=== PATIENT | female | born 1985 | race American Indian/Alaskan Native ===

== ENCOUNTER 2017-10-12 20:15 | Emergency (ER) | payer OTHER ==
[2017-10-12] MEDS ORDERED: Morphine 2 mg/ml ISec IVP STA (20:43)
[2017-10-12] MEDS ORDERED: Sodium Chloride 0.9% 1,000 ML IV STA (20:43)
[2017-10-12] MEDS ORDERED: Morphine 4 mg/ml ISec IVP STA (20:45)
--- NOTE | 2017-10-12 20:47 | ED PDOC ---
Arrival/HPI - General Chief Complaint: Abdominal Pain Time Seen by Provider: 10/12/17 20:41 Historian: Patient - History of Present Illness Narrative History of Present Illness (Text): 10/12/17 20:43 pt p/w + 2 days onset of right lower abd pain, worse with movement, at most pain is 8/10, waxing and waning, and does not radiate; pt states she has been having off and on right sided pain for ~ 4+ weeks, but the pain over the last 2 days is much more intense; pt states no fever/chills/sweats, no appetite changes , no n/v, no cp/sob/palpitation, no urinary/bowel changes, no gross bleeding, no fall/trauma/sick contact, no travel; pt states no rashes, no LOC/ lightheadedness pt denied other complaints pt denied vaginal changes/bleeding/discharge pt is here for further eval. PCP: Orin LMP: 4 weeks ago Time/Duration: < week (2 days ago but right lower abd pain started ~ 1 month ago ) Symptom Onset: Sudden Symptom Course: Intermittent, Worsening Quality: Stabbing, Cramping Severity Level: 8, Severe Activities at Onset: Rest Context: Home Past Medical History - Provider Review Nursing Documentation Reviewed: Yes - Travel History Have you recently traveled outside [place] w/in the past 3 mons?: No - Past History Past History: No Previous - Infectious Disease Hx of Infectious Diseases: None - Tetanus Immunization Tetanus Immunization: Unknown - Reproductive Menopause: No Currently : Unknown (LMP: 4 weeks ago) - Psychiatric Hx Substance Use: No Family/Social History - Physician Review Nursing Documentation Reviewed: Yes Family/Social History: No Known Family HX Smoking Status: hookah Hx Alcohol Use: Yes Frequency of alcohol use: Socially Hx Substance Use: No Hx Substance Use Treatment: No Allergies/Home Meds Allergies/Adverse Reactions: Allergies No Known Allergies Allergy (Verified 10/12/17 20:27) Review of Systems - Review of Systems Constitutional: Normal Eyes: Normal ENT: Normal Respiratory: Normal Cardiovascular: Normal Gastrointestinal: Abdominal Pain, Stool Changes, Constipation. absent: Nausea, Vomiting, Appetite Changes Genitourinary Female: Normal. absent: Dysuria, Vaginal Bleeding, Vaginal Discharge Musculoskeletal: Normal Skin: Normal Neurological: Normal Endocrine: Normal Hemo/Lymphatic: Normal Psychiatric: Normal Physical Exam Vital Signs Reviewed: Yes Vital Signs Temp Pulse Resp BP Pulse Ox 10/12/17 22:32 98.3 F 83 18 120/75 100 Temperature: Afebrile Blood Pressure: Normal Pulse: Regular Respiratory Rate: Normal Appearance: Positive for: Well-Appearing, Non-Toxic, Uncomfortable, Other (alert /awake, GCS = 15, oriented x 3, resting in bed, uncomfortable, cooperative, NAD) Pain Distress: None Mental Status: Positive for: Alert and Oriented X 3 - Systems Exam Head: Present: Atraumatic, Normocephalic Pupils: Present: PERRL, Other (no nystagmus, no photophobia, sclera anicteric, visual field intact b/l) Extroacular Muscles: Present: EOMI Conjunctiva: Present: Normal Ears: Present: Normal Mouth: Present: Moist Mucous Membranes, Normal Teeth, Other (uvula/tongue are midline, no exudate/lesions, no drooling/stridor) Pharnyx: Present: Normal Nose (External): Present: Atraumatic Nose (Internal): Present: Normal Inspection. No: No Active Bleeding Neck: Present: Normal Range of Motion, Trachea Midline, Other (intact ROM, no midline tenderness). No: Meningeal Signs, MIDLINE TENDERNESS, Paraspinal Tenderness Respiratory/Chest: Present: Clear to Auscultation, Good Air Exchange, Other ( CTA b/l, no w/r/r). No: Respiratory Distress, Accessory Muscle Use Cardiovascular: Present: Regular Rate and Rhythm, Normal S1, S2. No: Murmurs Abdomen: Present: Tenderness, Normal Bowel Sounds, Other (well nourished/thin female, + right lower abd tenderness, + mcburney's point tenderness, + obturator sign, negative psoas sign, no rebound/guarding/rigidity/masses noted, no garzon's sign) Back: Present: Normal Inspection. No: CVA Tenderness, Midline Tenderness, Paraspinal Tenderness, Pain with Leg Raise Upper Extremity: Present: Normal Inspection, Normal ROM, NORMAL PULSES, Capillary Refill < 2s. No: Deformity Lower Extremity: Present: Normal Inspection, NORMAL PULSES, Normal ROM, Neurovascularly Intact, Capillary Refill < 2 s Neurological: Present: GCS=15, CN II-XII Intact, Speech Normal Skin: Present: Warm, Normal Color, Other (cap refill < 1sec, no ulcerations, no petechiae, no rashes) Psychiatric: Present: Alert, Oriented x 3, Normal Insight, Normal Concentration Medical Decision Making ED Course and Treatment: 10/12/17 20:43 Impression: right abd pain i have consider all the differential diagnosis regarding pt's chief medical complaints/clinical findings, including but are not limited to: right abd pain A/P: r/o appy, possible ovarian pathology - labs - iv - ct - ua - supportive care - observe/reevaluation pt is awaiting her diagnostic results pt felt slight improvement 10/12/17 23:57 pt is made aware of her medical results pt is given a choice for either admission or discharge home, for her medical diagnosis, pt states she felt well enough that she wants to try at home/outpt therapy first pt would like to be released home pt is encouraged fluid hydration pt will f/u as directed pt will be discharged home Re-evaluation Time: 00:01 Reassessment Condition: Improving,but remains with symptoms - Lab Interpretations Lab Results: 10/12/17 20:56 10/12/17 20:56 Lab Results 10/12/17 20:56: Urine Color Light yellow, Urine Appearance Sl cloudy, Urine pH 6.0, Ur Specific [place] 1.015, Urine Protein Trace H, Urine Glucose (UA) Negative, Urine Ketones 15 H, Urine Blood Small H, Urine Nitrate Negative, Urine Bilirubin Negative, Urine Urobilinogen 2.0 H, Ur Leukocyte Esterase Small H, Urine RBC 1 - 3, Urine WBC 10 - 15, Ur Epithelial Cells 1 - 3, Urine Bacteria Few 10/12/17 20:56: pO2 34, VBG pH 7.38, VBG pCO2 46.0, VBG HCO3 27.2, VBG Total CO2 28.6 H, VBG O2 Sat (Calc) 68.9 H, VBG Base Excess 1.5, VBG Potassium 3.6, Sodium 136.0, Chloride 102.0, Glucose 90, Lactate 0.5 L, FiO2 21.0, Venous Blood Potassium 3.6 10/12/17 20:56: Sodium 142, Chloride 102, Potassium 3.6, Carbon Dioxide 25, Anion Gap 20, BUN 15, Creatinine 0.7, Est GFR ( Amer) > 60, Est GFR (Non- Af Amer) > 60, Random Glucose 89, Calcium 9.1, Magnesium 2.0, Total Bilirubin 0.3, AST 28, ALT 17, Alkaline Phosphatase 69, Total Protein 8.5 H, Albumin 4.5, Globulin 4.0, Albumin/Globulin Ratio 1.1, Lipase 257 10/12/17 20:56: PT 13.3 H, INR 1.16 H, APTT 29.4 10/12/17 20:56: WBC 9.7, RBC 3.52, Hgb 11.5 L, Hct 33.8 L, MCV 96.0, MCH 32.7, MCHC 34.0, RDW 13.1, Plt Count 298, MPV 9.5, Gran % 73.3 H, Lymph % (Auto) 17.7 L, [place] % (Auto) 8.5 H, Eos % (Auto) 0.3 L, Baso % (Auto) 0.2, Gran # 7.09 H, Lymph # (Auto) 1.7, [place] # (Auto) 0.8 H, Eos # (Auto) 0.0, Baso # (Auto) 0.02 I have reviewed the lab results: Yes Interpretation: Abnormal lab values (+ UTI) - RAD Interpretation Narrative RAD Interpretations (Text): 10/12/17 23:57 CT Abdomen and Pelvis With Intravenous Contrast Dictated and Authenticated by: Po Correa MD 10/12/2017 10:41 PM Eastern Time ([place] & [place]) IMPRESSION: 1. Findings compatible with RIGHT pyelonephritis and possible ureteritis. 2. Incidental/non-acute findings are described above. [facility] Division of Radiology [address] [address] Tel. no. Patient Name: CARTER XIE Pt. Address: [address] [place] [address]. Rec #: [id number] [place] [address]: Mathew Noyola MD Pt Order Location: ED : 1985 Female Age: 32 Order #: [id number] Reason for exam: R lower abd pain started 4 weeks ago, worse x 2d Ultrasound TRANSVAGINAL Exam Date: 10/12/17 This imaging exam was performed at [facility] EXAM: US Pelvis Complete, Transabdominal US Pelvis, Transvaginal CLINICAL HISTORY: 32 years old, female; Pain; Pelvic pain; Additional info: R lower abd pain started 4 weeks ago, worse x 2d TECHNIQUE: Real-time transabdominal and transvaginal pelvic ultrasound (complete) with image documentation. Transvaginal imaging was used for better evaluation of the endometrium and adnexa. COMPARISON: CT - ABD PELVIS IV CONTRAST ONLY 2017-10-12 22:02 FINDINGS: Uterus/cervix: Uterus measures 10.3 x 4.1 x 5.9 cm in size. No myometrial mass. Endometrium: 1.6 cm in thickness. Right ovary: 3.4 x 2.4 x 3.3 cm in size. Two shadowing hyperechoic foci, larger measuring 1.7 x 1.6 x 1.9 cm. Normal flow. Left ovary: 2.5 x 1.9 x 2.7 cm in size. No mass. Normal flow. Free fluid: Trace free fluid within pelvis. Bladder: Unremarkable as visualized. IMPRESSION: 1. Right ovarian calcifications vs dermoid. Suggest nonemergent MRI. 2. Incidental/non-acute findings are described above. Dictated By: Po Correa MD Dictated Date/Time: 10/12/172352 Signed By: Po Correa MD Date Signed: [id number] Transcribed By: DAVID Transcribe Date/Time : 10/12/172352 [id number] Radiology Orders: 10/12/17 20:41 ABD & PELVIS IV CONTRAST ONLY [CT] Stat 10/12/17 20:47 TRANSVAGINAL [US] Stat Patrol Supervisor: Radiologist - Medication Orders Current Medication Orders: Discontinued Medications Sodium Chloride (Sodium Chloride 0.9%) 1,000 mls @ 999 mls/hr IV .Q1H1M STA Stop: 10/12/17 21:43 Last Admin: 10/12/17 20:54 Dose: 999 mls/hr eMAR Start Stop Document 10/12/17 20:54 CNR (Rec: 10/12/17 20:54 CNR [id number]) Intravenous Solution Start Date 10/12/17 Start Time 20:54 Ceftriaxone Sodium (Rocephin 1 Gram Ivpb) 1 gm in 100 mls @ 200 mls/hr IVPB STAT STA PRN Reason: Protocol Stop: 10/12/17 23:12 Last Admin: 10/12/17 22:56 Dose: 200 mls/hr eMAR Start Stop Document 10/12/17 22:56 CNR (Rec: 10/12/17 22:58 CNR [id number]) Intravenous Solution Start Date 10/12/17 Start Time 22:58 End Date 10/12/17 End time 23:28 Total Infusion Time 30 Ketorolac Tromethamine (Toradol) 30 mg IVP STAT STA Stop: 10/12/17 22:45 Last Admin: 10/12/17 22:58 Dose: 30 mg MAR Pain Assessment Document 10/12/17 22:58 CNR (Rec: 10/12/17 22:58 CNR [id number]) Pain Reassessment Is this a pain reassessment? Yes IVP Administration Document 10/12/17 22:58 CNR (Rec: 10/12/17 22:58 CNR [id number]) Charges for Administration # of IVP Administrations 1 Morphine Sulfate (Morphine) 4 mg IVP STAT STA Stop: 10/12/17 20:46 Last Admin: 10/12/17 20:55 Dose: 4 mg MAR Pain Assessment Document 10/12/17 20:55 CNR (Rec: 10/12/17 20:55 CNR [id number]) Pain Reassessment Is this a pain reassessment? Yes IVP Administration Document 10/12/17 20:55 CNR (Rec: 10/12/17 20:55 CNR [id number]) Charges for Administration # of IVP Administrations 1 Disposition/Present on Arrival - Present on Arrival Any Indicators Present on Arrival: No History of DVT/PE: No History of Uncontrolled Diabetes: No Urinary Catheter: No History of Decub. Ulcer: No History Surgical Site Infection Following: None - Disposition Have Diagnosis and Disposition been Completed?: Yes Diagnosis: Pyelonephritis, UTI (urinary tract infection), Calcification of ovary Disposition: HOME/ ROUTINE Disposition Time: 00:00 Patient Plan: Discharge Patient Problems: Current Active Problems Problem Status Onset Pyelonephritis Acute UTI (urinary tract infection) Acute Calcification of ovary Acute Condition: STABLE Discharge Instructions (ExitCare): Urinary Tract Infections in Adults, Kidney Infection (DC) Print Language: TANZANIAN Additional Instructions: Make sure to see your doctor in 1-2 days DRINK PLENTY OF FLUIDS take your medications as prescribed RETURN TO ED IF worse pain, cant breath, persistent vomiting, high fever >101- 102 for hours, altered behavior, slurr speech, facial changes, focal weakness ( arm/leg or both), unable to urinate, heavy/persistent bleeding, passing out, chest pain, or other medical emergencies Prescriptions: Amoxicillin/Clavulanate [Augmentin 875 MG-125 MG] 1 tab PO BID #20 tab Ibuprofen [Motrin] 400 mg PO QID PRN #30 tab PRN Reason: Pain, Mild (1-3) oxyCODONE/Acetaminophen [Percocet 5/325 mg Tab] 1 tab PO TID PRN #10 tab PRN Reason: Pain, Moderate (4-7) Referrals: Dinah Sr CNM [Primary Care Provider] - Follow up with primary [facility] [Outside] - Follow up with primary [facility] [Outside] - Follow up with [facility] [Outside] - Follow up with primary Forms: [employer] (Slovak), WORK NOTE
[2017-10-12 21:01] LABS: URINE BILIRUBIN NEGATIVE (NEGATIVE); URINE BLOOD SMALL (NEGATIVE); URINE GLUCOSE (UA) NEGATIVE (NEGATIVE); URINE LEUKOCYTE ESTERASE SMALL Leu/uL (NEGATIVE); URINE PROTEIN TRACE mg/dL (<30 mg/dL)
[2017-10-12 21:02] LABS: URINE APPEARANCE SL CLOUDY (CLEAR); URINE COLOR LIGHT YELLOW (YELLOW); VENOUS BLOOD GAS BASE EXCESS 1.5 mmol/L (0.0-2.0); VENOUS BLOOD GAS PO2 34 mm/Hg (30-55); VENOUS BLOOD PH 7.38 (7.32-7.43)
[2017-10-12 21:03] LABS: BASO # 0.02 K/mm3 (0.0-2.0); BASO % 0.2 % (0.0-3.0); EOS % 0.3 % (1.5-5.0); GRAN # 7.09 (1.4-6.5); GRAN % 73.3 % (50.0-68.0); HEMOGLOBIN 11.5 g/dL (12.0-16.0); LYMPH # 1.7 (1.2-3.4); LYMPH % 17.7 % (22.0-35.0); MEAN CORPUSCULAR HEMOGLOBIN 32.7 pg (25.0-35.0); MEAN PLATELET VOLUME 9.5 fl (7.0-11.0); MONO # 0.8 (0.1-0.6); MONO % 8.5 % (1.0-6.0); RBC 3.52 10^6/uL (3.5-6.1); RED CELL DISTRIBUTION WIDTH 13.1 % (11.5-14.5); WHITE BLOOD COUNT 9.7 10^3/ul (4.5-11.0)
[2017-10-12 21:06] LABS: URINE BACTERIA FEW (NEG)
[2017-10-12 21:11] LABS: ALB/GLOB RATIO 1.1 (1.1-1.8); ALBUMIN 4.5 g/dL (3.0-4.8); ALT/SGPT 17 U/L (7-56); AST/SGOT 28 U/L (14-36); BLOOD UREA NITROGEN 15 mg/dL (7-21); CALCIUM 9.1 mg/dL (8.4-10.5); GFR AFRICAN-AMERICAN > 60; GFR NON-AFRICAN AMERICAN > 60; LIPASE 257 U/L (23-300)
[2017-10-12 21:21] LABS: INR 1.16 (0.93-1.08); PARTIAL THROMBOPLASTIN TIME 29.4 Seconds (25.1-36.5); PROTHROMBIN TIME 13.3 SECONDS (9.4-12.5)
[2017-10-12] MEDS ORDERED: Iohexol 350 MG/100 ML VIAL ONE (21:44)
--- NOTE | 2017-10-12 22:42 | CT ---
EXAM: CT Abdomen and Pelvis With Intravenous Contrast CLINICAL HISTORY: 32 years old, female; Pain; Abdominal pain; Localized; Right; Additional info: Right abd pain x 2 days, worse today TECHNIQUE: Axial computed tomography images of the abdomen and pelvis with intravenous contrast. All CT scans at this facility use one or more dose reduction techniques, viz.: automated exposure control; ma/kV adjustment per patient size (including targeted exams where dose is matched to indication; i.e. head); or iterative reconstruction technique. Coronal and sagittal reformatted images were created and reviewed. CONTRAST: 94 mL of OMNI 350 administered intravenously. COMPARISON: No relevant prior studies available. FINDINGS: Lung bases: No acute findings. ABDOMEN: Liver: Minimal periportal edema. Gallbladder and bile ducts: No calcified stones. No ductal dilation. Pancreas: No ductal dilation. No mass. Spleen: No splenomegaly. Adrenals: No mass. Kidneys and ureters: Minimal stranding about RIGHT kidney. Several mild ill-defined peripheral areas of decreased attenuation within RIGHT kidney. Too small to characterize lesion within LEFT kidney. No hydronephrosis. Apparent minimal urothelial enhancement of RIGHT renal pelvis and proximal ureter. Stomach and bowel: No definite mural thickening. No obstruction. PELVIS: Appendix: Normal caliber. No inflammation. Bladder: Unremarkable. Reproductive: Several coarse calcifications about adnexal regions, right greater left. ABDOMEN and PELVIS: Intraperitoneal space: Small free fluid within pelvis. No free air. Bones/joints: Probable bone islands. No acute fracture. Soft tissues: Unremarkable. Vasculature: Unremarkable. No aneurysm. Lymph nodes: No pathologically enlarged lymph nodes. IMPRESSION: 1. Findings compatible with RIGHT pyelonephritis and possible ureteritis. 2. Incidental/non-acute findings are described above.
[2017-10-12] MEDS ORDERED: cefTRIAXone 1 gm 1 GM/100 ML BAG IVPB STA (22:43)
--- NOTE | 2017-10-12 23:53 | US ---
EXAM: US Pelvis Complete, Transabdominal US Pelvis, Transvaginal CLINICAL HISTORY: 32 years old, female; Pain; Pelvic pain; Additional info: R lower abd pain started 4 weeks ago, worse x 2d TECHNIQUE: Real-time transabdominal and transvaginal pelvic ultrasound (complete) with image documentation. Transvaginal imaging was used for better evaluation of the endometrium and adnexa. COMPARISON: CT - ABD PELVIS IV CONTRAST ONLY 2017-10-12 22:02 FINDINGS: Uterus/cervix: Uterus measures 10.3 x 4.1 x 5.9 cm in size. No myometrial mass. Endometrium: 1.6 cm in thickness. Right ovary: 3.4 x 2.4 x 3.3 cm in size. Two shadowing hyperechoic foci, larger measuring 1.7 x 1.6 x 1.9 cm. Normal flow. Left ovary: 2.5 x 1.9 x 2.7 cm in size. No mass. Normal flow. Free fluid: Trace free fluid within pelvis. Bladder: Unremarkable as visualized. IMPRESSION: 1. Right ovarian calcifications vs dermoid. Suggest nonemergent MRI. 2. Incidental/non-acute findings are described above.
[2017-10-13 02:52] VITALS: BP 122/76; PULSE 69; RESP 19; TEMP 98.2; O2SAT 99
== END 2017-10-13 00:26 | disposition home or self-care (01) ==
LOC: ED 20:15
DX: N39.0 Urinary tract infection, site not specified (principal); N12 Tubulo-interstitial nephritis, not specified as acute or chronic; N83.8 Other noninflammatory disorders of ovary, fallopian tube and broad ligament
CPT/HCPCS: 74177; 76830; 80053; 81001; 82803; 83690; 83735; 85025; 85610; 85730; 87086; 87181; 96365; 96375; 99284; J0696; J1885; J2270; J7040; Q9967

== ENCOUNTER 2017-11-24 10:01 | Emergency (ER) | payer OTHER ==
[2017-11-24 10:07] VITALS: RESP 18; BMI 19.9
[2017-11-24] MEDS ORDERED: cefTRIAXone 1 gm 1 GM/100 ML BAG IVPB STA (10:35)
[2017-11-24] MEDS ORDERED: Sodium Chloride 0.9% 1,000 ML IV STA ×2 (10:46→11:11)
--- NOTE | 2017-11-24 10:52 | ED PDOC ---
Arrival/HPI - History of Present Illness Time/Duration: 24 hours Symptom Onset: Gradual Symptom Course: Improving Quality: Stabbing Severity Level: Moderate <Jeremy Cerda - Last Filed: 11/24/17 14:47> <Rigoberto Sultana - Last Filed: 11/24/17 17:33> - General Chief Complaint: Female Genitourinary Time Seen by Provider: 11/24/17 10:24 - History of Present Illness Narrative History of Present Illness (Text): Patient is a 32 year old female with a right pyelonephritis and possible ureteritis who presents to the emergency room for evaluation and treatment of left sided flank pain which began yesterday evening with no specific provoking event. Pain is characterized as being sharp in nature and was rated a 10/10. Pain originates in the left flank region and radiates to the left lumbar region. Admits to urine having a cloudy appearance. Admits to fever and chills. Denies chest pain, SOB, nausea, vomiting, diarrhea, constipation, urinary urgency, frequency, and pain while urinating. PCP: Orin 11/24/17 10:43 (Jeremy Cerda) Past Medical History - Past History Past History: No Previous - Infectious Disease Hx of Infectious Diseases: None - Tetanus Immunization Tetanus Immunization: Unknown - Genitourinary/Gynecological Hx Urinary Tract Infection: Yes - Psychiatric Hx Substance Use: No - Anesthesia Hx Anesthesia: No <Jeremy Cerda - Last Filed: 11/24/17 14:47> Family/Social History - Physician Review Nursing Documentation Reviewed: Yes Family/Social History: Unknown Family HX Smoking Status: Never Smoked Hx Alcohol Use: Yes Frequency of alcohol use: Socially Hx Substance Use: No Hx Substance Use Treatment: No <Jeremy Cerda - Last Filed: 11/24/17 14:47> Allergies/Home Meds <Jeremy Cerda - Last Filed: 11/24/17 14:47> <Rigoberto Sultana - Last Filed: 11/24/17 17:33> Allergies/Adverse Reactions: Allergies No Known Allergies Allergy (Verified 10/12/17 20:27) Review of Systems - Physician Review All systems were reviewed & negative as marked: Yes - Review of Systems Constitutional: Normal Eyes: Normal ENT: Normal Respiratory: Normal Cardiovascular: Normal Gastrointestinal: Normal Genitourinary Female: Other (cloudy urine ). absent: Dysuria, Frequency, Hematuria, Urine Output Changes Musculoskeletal: Other (left sided flank pain) Skin: Normal Neurological: Normal Endocrine: Normal Hemo/Lymphatic: Normal Psychiatric: Normal <CerdaJeremy - Last Filed: 11/24/17 14:47> Physical Exam Temperature: Febrile Blood Pressure: Normal Pulse: Tachycardic Respiratory Rate: Normal Appearance: Positive for: Well-Appearing, Non-Toxic, Comfortable Pain Distress: None Mental Status: Positive for: Alert and Oriented X 3 - Systems Exam Head: Present: Atraumatic, Normocephalic Pupils: Present: PERRL Extroacular Muscles: Present: EOMI Conjunctiva: Present: Normal Mouth: Present: Moist Mucous Membranes Neck: Present: Normal Range of Motion Respiratory/Chest: Present: Clear to Auscultation, Good Air Exchange. No: Respiratory Distress, Accessory Muscle Use Cardiovascular: Present: Regular Rate and Rhythm, Normal S1, S2. No: Murmurs Abdomen: No: Tenderness, Distention, Peritoneal Signs Back: Present: CVA Tenderness (left CVA tenderness) Upper Extremity: Present: Normal Inspection. No: Cyanosis, Edema Lower Extremity: Present: Normal Inspection. No: Edema Neurological: Present: GCS=15, CN II-XII Intact, Speech Normal Skin: Present: Warm, Dry, Normal Color. No: Rashes Psychiatric: Present: Alert, Oriented x 3, Normal Insight, Normal Concentration <CerdaJeremy - Last Filed: 11/24/17 14:47> Vital Signs Temp Pulse Resp BP Pulse Ox 11/24/17 15:23 98.4 F 78 18 106/74 97 11/24/17 10:06 100.7 F H 109 H 18 137/83 98 Medical Decision Making - Lab Interpretations I have reviewed the lab results: Yes <Jeremy Cerda - Last Filed: 11/24/17 14:47> <Rigoberto Sultana - Last Filed: 11/24/17 17:33> ED Course and Treatment: Assessment and Plan: Patient is a 32 year old female with a right pyelonephritis and possible ureteritis who presents to the emergency room for evaluation and treatment of left sided flank pain. Flank pain- UTI vs Pyelo 11/24/17 10:54 - CBC, CMP, Mag, PHos - UA - Rocephin - 1 L NS - Renal US 11/24/17 11:12 - UA reviewed- UTI 11/24/17 14:49 - renal US- no acute findings - patients pain has resolved - ok to discharge home on bactrim (Jeremy Cerda) 32 yo female with left flank pain. Agree with resident note. Patient's labs reviewed. CBC WBC nl. UA positive for UTI. Renal sono normal. Patient given antibiotics Bactrim x 14 days and advised to follow up with PMD. Also she will return to the ED if symptoms worsen or any other concern. ( Rigoberto Sultana) - Lab Interpretations Lab Results: 11/24/17 10:43 11/24/17 10:43 Lab Results 11/24/17 11:52: pO2 48, VBG pH 7.37, VBG pCO2 44.0, VBG HCO3 25.4, VBG Total CO2 26.8, VBG O2 Sat (Calc) 87.9 H, VBG Base Excess -0.2 L, VBG Potassium 3.4 L , Glucose 85, Lactate 0.7, FiO2 21.0, Sodium 137.0, Chloride 106.0, Venous Blood Potassium 3.4 L 11/24/17 10:43: Sodium 140, Potassium 3.5 L, Chloride 100, Carbon Dioxide 27, Anion Gap 16, BUN 4 L, Creatinine 0.6 L, Est GFR ( Amer) > 60, Est GFR ( Non-Af Amer) > 60, Random Glucose 106, Calcium 8.7, Phosphorus 3.4, Magnesium 1.8, Total Bilirubin 1.1, AST 31, ALT 20, Alkaline Phosphatase 90, Total Protein 7.8, Albumin 4.0, Globulin 3.8, Albumin/Globulin Ratio 1.1 11/24/17 10:43: Urine Color Yellow, Urine Appearance Clear, Urine pH 6.5, Ur Specific [place] 1.015, Urine Protein 30 H, Urine Glucose (UA) Negative, Urine Ketones >=80, Urine Blood Small H, Urine Nitrate Negative, Urine Bilirubin Small H, Urine Urobilinogen 1.0 H, Ur Leukocyte Esterase Small H, Urine RBC 5 - 10, Urine WBC 5 - 10, Ur Epithelial Cells 4 - 5, Urine Bacteria Mod 11/24/17 10:43: PT 13.8 H, INR 1.20 H, APTT 28.5 11/24/17 10:43: WBC 10.8, RBC 3.37 L, Hgb 10.8 L, Hct 32.2 L, MCV 95.5, MCH 32.0 , MCHC 33.5, RDW 14.4, Plt Count 240, MPV 9.8, Gran % 78.2 H, Lymph % (Auto) 9.0 L, Bartholomew % (Auto) 12.5 H, Eos % (Auto) 0.2 L, Baso % (Auto) 0.1, Gran # 8.48 H, Lymph # (Auto) 1.0 L, Bartholomew # (Auto) 1.4 H, Eos # (Auto) 0.0, Baso # (Auto) 0.01 - RAD Interpretation Radiology Orders: 11/24/17 10:55 RENAL [US] Stat - Medication Orders Current Medication Orders: Discontinued Medications Acetaminophen (Tylenol 325mg Tab) 975 mg PO STAT STA Stop: 11/24/17 11:03 Last Admin: 11/24/17 11:34 Dose: 975 mg MAR Pain/Vitals Document 11/24/17 11:34 EQ (Rec: 11/24/17 11:34 EQ [id number]) Pain Reassessment Is This A Pain ReAssessment? No Sleep Is patient sleeping during reassessment? No Presence of Pain Presence of Pain Yes Ceftriaxone Sodium (Rocephin 1 Gram Ivpb) 1 gm in 100 mls @ 200 mls/hr IVPB STAT STA PRN Reason: Protocol Stop: 11/24/17 11:04 Last Admin: 11/24/17 10:50 Dose: 200 mls/hr eMAR Start Stop Document 11/24/17 10:50 SF (Rec: 11/24/17 10:50 SF [id number]) Intravenous Solution Start Date 11/24/17 Start Time 10:50 End Date 11/24/17 End time 11:20 Total Infusion Time 30 Sodium Chloride (Sodium Chloride 0.9%) 1,000 mls @ 999 mls/hr IV .Q1H1M STA Stop: 11/24/17 11:46 Last Admin: 11/24/17 10:49 Dose: 999 mls/hr eMAR Start Stop Document 11/24/17 10:49 SF (Rec: 11/24/17 10:49 SF [id number]) Intravenous Solution Start Date 11/24/17 Start Time 10:49 End Date 11/24/17 End time 11:50 Total Infusion Time 61 Sodium Chloride (Sodium Chloride 0.9%) 1,000 mls @ 999 mls/hr IV .Q1H1M STA Stop: 11/24/17 12:11 Last Admin: 11/24/17 11:33 Dose: 999 mls/hr eMAR Start Stop Document 11/24/17 11:33 EQ (Rec: 11/24/17 11:33 EQ [id number]) Intravenous Solution Start Date 11/24/17 Start Time 11:33 Potassium Chloride (Potassium Chloride Oral Soln) 40 meq PO ONCE ONE Stop: 11/24/17 11:06 Last Admin: 11/24/17 11:33 Dose: 40 meq Disposition/Present on Arrival - Present on Arrival Any Indicators Present on Arrival: No History of DVT/PE: No History of Uncontrolled Diabetes: No Urinary Catheter: No History of Decub. Ulcer: No History Surgical Site Infection Following: None - Disposition Have Diagnosis and Disposition been Completed?: Yes Disposition Time: 14:47 <Jeremy Cerda - Last Filed: 11/24/17 14:47> - Disposition Patient Plan: Discharge <Rigoberto Sultana - Last Filed: 11/24/17 17:33> - Disposition Diagnosis: Pyelonephritis Disposition: HOME/ ROUTINE Condition: GOOD Discharge Instructions (ExitCare): Urinary Tract Infection, Adult (DC) Additional Instructions: CARTER XIE, thank you for letting us take care of you today. Your provider was Rigoberto Sultana DO and you were treated for KIDNEY PAIN. The emergency medical care you received today was directed at your acute symptoms. If you were prescribed any medication, please fill it and take as directed. It may take several days for your symptoms to resolve. Return to the Emergency Department if your symptoms worsen, do not improve, or if you have any other problems. Please contact your doctor or call one of the physicians/clinics you have been referred to that are listed on the Patient Visit Information form that is included in your discharge packet. Bring any paperwork you were given at discharge with you along with any medications you are taking to your follow up visit. Our treatment cannot replace ongoing medical care by a primary care provider outside of the emergency department. Thank you for allowing the [facility] team to be part of your care today. If you had an X-Ray or CT scan: A Radiologist will review the ED reading if any change in treatment is needed we will contact you. If you had a blood, urine, or wound culture: It will take several days for the results, if any change in treatment is needed we will contact you. If you had an STI test: It will take 48 hours for the results. Please call after 1 week if you have not heard back. Prescriptions: Sulfamethoxazole/Trimethoprim [Bactrim 400-80 mg Tablet] 1 each PO BID 14 Days tablet Referrals: Dinah Sr CNM [Primary Care Provider] - Follow up with primary Forms: Anne Fogarty (Swedish)
[2017-11-24 10:55] LABS: BASO # 0.01 K/mm3 (0.0-2.0); BASO % 0.1 % (0.0-3.0); EOS % 0.2 % (1.5-5.0); GRAN # 8.48 (1.4-6.5); GRAN % 78.2 % (50.0-68.0); HEMOGLOBIN 10.8 g/dL (12.0-16.0); MEAN CELL VOLUME 95.5 fl (80.0-105.0); MEAN CORPUSCULAR HGB CONC 33.5 g/dl (31.0-37.0); MEAN PLATELET VOLUME 9.8 fl (7.0-11.0); MONO # 1.4 (0.1-0.6); MONO % 12.5 % (1.0-6.0); RBC 3.37 10^6/uL (3.5-6.1); RED CELL DISTRIBUTION WIDTH 14.4 % (11.5-14.5); WHITE BLOOD COUNT 10.8 10^3/ul (4.5-11.0)
[2017-11-24 10:58] LABS: PH,URINE 6.5 (4.7-8.0); URINE APPEARANCE CLEAR (CLEAR); URINE BILIRUBIN SMALL (NEGATIVE); URINE BLOOD SMALL (NEGATIVE); URINE COLOR YELLOW (YELLOW); URINE GLUCOSE (UA) NEGATIVE (NEGATIVE); URINE LEUKOCYTE ESTERASE SMALL Leu/uL (NEGATIVE); URINE PROTEIN 30 mg/dL (<30 mg/dL)
[2017-11-24 11:03] LABS: ALB/GLOB RATIO 1.1 (1.1-1.8); ALT/SGPT 20 U/L (7-56); AST/SGOT 31 U/L (14-36); BLOOD UREA NITROGEN 4 mg/dL (7-21); CALCIUM 8.7 mg/dL (8.4-10.5); GFR AFRICAN-AMERICAN > 60; GFR NON-AFRICAN AMERICAN > 60
[2017-11-24] MEDS ORDERED: Potassium Chloride 40 mEq/30 ml LIQ UD PO ONE (11:05)
[2017-11-24 11:41] LABS: URINE BACTERIA MOD (NEG)
[2017-11-24 11:59] LABS: VENOUS BLOOD GAS BASE EXCESS -0.2 mmol/L (0.0-2.0); VENOUS BLOOD GAS PO2 48 mm/Hg (30-55); VENOUS BLOOD PH 7.37 (7.32-7.43)
[2017-11-24 12:17] LABS: INR 1.2 (0.93-1.08); PARTIAL THROMBOPLASTIN TIME 28.5 Seconds (25.1-36.5); PROTHROMBIN TIME 13.8 SECONDS (9.4-12.5)
--- NOTE | 2017-11-24 14:33 | US ---
PROCEDURE: Ultrasound of the Kidneys HISTORY: left sided flank pain COMPARISON: None available. TECHNIQUE: Sonogram of the kidneys. FINDINGS: RIGHT KIDNEY: Measures: 12.25 x 4.47 x 4.91 cm. Normal in size, contour and echogenicity. No stone, solid mass lesion or hydronephrosis visualized. LEFT KIDNEY: Measures: 12.31 x 6.91 x 4.84 cm. Normal in size, contour and echogenicity. No stone, solid mass lesion or hydronephrosis visualized. OTHER FINDINGS: None. IMPRESSION: Unremarkable renal sonogram.
[2017-11-24 15:25] VITALS: BP 106/74; PULSE 78; TEMP 98.4; O2SAT 97
== END 2017-11-24 15:23 | disposition home or self-care (01) ==
LOC: ED 10:01
DX: N12 Tubulo-interstitial nephritis, not specified as acute or chronic (principal)
CPT/HCPCS: 76770; 80053; 81001; 82803; 83735; 84100; 85025; 85610; 85730; 87040; 87086; 87181; 96365; 99284; J0696; J3480; J7030

== ENCOUNTER 2017-12-16 21:00 | Emergency (ER) | payer OTHER ==
[2017-12-16 21:01] VITALS: BMI 19.9
--- NOTE | 2017-12-16 21:46 | ED PDOC ---
Arrival/HPI - General Chief Complaint: Abnormal Skin Integrity Time Seen by Provider: 12/16/17 21:13 Historian: Patient EM Caveat: Acuity of Condition - History of Present Illness Narrative History of Present Illness (Text): 12/16/17 21:34 Pt is a 32 yr old female who presents to the ED for an nonspecific rash on the extremities for the past 3 days. Pt was treated approximately one week ago for pyelonephritis and placed on Bactrim DS x 7 days. Pt states she was traveling to work 3 days ago and had a syncopal episode while sitting on the train. Reports it was momentary and did not have another event. States she noticed an itchy rash on her hands last night that progressed to extremities; the trunk, face, buttocks; palms and plantar aspects spared. Denies chest pain, shortness of breath, abdominal or abdominal pain, recent travel, dysuria, GIB, new pets, detergents or clothing, or sick contacts. Time/Duration: 24 hours Symptom Onset: Sudden Symptom Course: Worsening Quality: Pressure, Tightness Severity Level: 4 Context: Home Past Medical History - Provider Review Nursing Documentation Reviewed: Yes - Travel History Have you recently traveled outside [place] w/in the past 3 mons?: No - Past History Past History: No Previous - Infectious Disease Hx of Infectious Diseases: None - Tetanus Immunization Tetanus Immunization: Unknown - Genitourinary/Gynecological Hx Urinary Tract Infection: Yes - Psychiatric Hx Substance Use: No - Anesthesia Hx Anesthesia: No Family/Social History - Physician Review Nursing Documentation Reviewed: Yes Family/Social History: Unknown Family HX Smoking Status: Never Smoked Hx Alcohol Use: Yes Frequency of alcohol use: Socially Hx Substance Use: No Hx Substance Use Treatment: No Allergies/Home Meds Allergies/Adverse Reactions: Allergies No Known Allergies Allergy (Verified 12/16/17 21:15) Review of Systems - Review of Systems Systems not reviewed;Unavailable: Acuity of Condition Constitutional: Normal. absent: Fatigue, Weight Change, Fevers Eyes: Normal. absent: Vision Changes ENT: Normal. absent: Hearing Changes, Sore Throat, Rhinorrhea Respiratory: Normal. absent: SOB Cardiovascular: Normal. absent: Chest Pain, Palpitations Gastrointestinal: Normal. absent: Abdominal Pain, Nausea, Vomiting, Appetite Changes Genitourinary Female: Normal. absent: Dysuria, Frequency, Hematuria, Urine Output Changes Musculoskeletal: Normal. absent: Arthralgias Skin: Normal, Rash, Pruritis Neurological: Normal. absent: Headache Endocrine: Normal. absent: Diaphoresis Hemo/Lymphatic: Normal Psychiatric: Normal Physical Exam Vital Signs Reviewed: Yes Vital Signs Temp Pulse Resp BP Pulse Ox 12/16/17 23:53 97.7 F 70 18 110/71 99 12/16/17 23:11 97.7 F 64 18 107/72 99 12/16/17 21:01 98.4 F 83 19 119/84 96 Temperature: Afebrile Blood Pressure: Normal Pulse: Regular Respiratory Rate: Normal Appearance: Positive for: Well-Appearing, Non-Toxic, Comfortable Pain Distress: None Mental Status: Positive for: Alert and Oriented X 3 - Systems Exam Head: Present: Atraumatic, Normocephalic Pupils: Present: PERRL Extroacular Muscles: Present: EOMI Conjunctiva: Present: Normal. No: Injected Mouth: Present: Moist Mucous Membranes Neck: Present: Normal Range of Motion. No: Meningeal Signs Respiratory/Chest: Present: Clear to Auscultation, Good Air Exchange. No: Respiratory Distress, Accessory Muscle Use, Wheezes, Decreased Breath Sounds Cardiovascular: Present: Regular Rate and Rhythm, Normal S1, S2. No: Murmurs Abdomen: No: Tenderness, Distention, Peritoneal Signs Back: Present: Normal Inspection Upper Extremity: Present: Normal Inspection, Normal ROM, NORMAL PULSES, Neurovascularly Intact, Capillary Refill < 2s. No: Cyanosis, Edema Lower Extremity: Present: Normal Inspection, NORMAL PULSES, Normal ROM, Neurovascularly Intact, Capillary Refill < 2 s. No: Edema Neurological: Present: GCS=15, CN II-XII Intact, Speech Normal, Motor Func Grossly Intact, Normal Sensory Function, Gait Normal Skin: Present: Warm, Dry, Rashes (Upper and lower extremities b/l), Normal Color Psychiatric: Present: Alert, Oriented x 3, Normal Insight, Normal Concentration Medical Decision Making ED Course and Treatment: 12/16/17 21:46 Impression Pt is a 32 yr old female who presents to the ED for an nonspecific rash on the extremities for the past 3 days. Papular, pruritic rash on bilateral dorsal aspect of hands, arms, lower extremities and feet on the dorsal aspect; Working Dx: contact/allergic dermatitis vs drug reaction vs infectious process Plan Labs, UA ekg CXR assess and dispo Progress Note 12/16/17 23:09 Pt resting comfortably in bed after receiving decadron 10 mg im CXR: no active disease EKG: NSR; no ST or T-Wave abnormalities noted Labs wnl; eosinophile count elevated Advised pt to take Benadryl with famotidine to reduce reaction follow up with PMD in 2 days VSS on d/c 12/17/17 00:46 - Lab Interpretations Lab Results: 12/16/17 21:56 12/16/17 21:56 Lab Results 12/16/17 21:56: Sodium 140, Potassium 4.2, Chloride 101, Carbon Dioxide 28, Anion Gap 15, BUN 10, Creatinine 0.6 L, Est GFR ( Amer) > 60, Est GFR ( Non-Af Amer) > 60, Random Glucose 77, Calcium 9.4, Total Bilirubin 0.4, AST 51 H D, ALT 26, Alkaline Phosphatase 83, Total Protein 8.6 H, Albumin 4.6, Globulin 4.0, Albumin/Globulin Ratio 1.2 12/16/17 21:56: WBC 3.7 L D, RBC 3.59, Hgb 11.4 L, Hct 33.9 L, MCV 94.4, MCH 31.8, MCHC 33.6, RDW 14.6 H, Plt Count 288, MPV 9.7, Gran % 32.3 L, Lymph % ( Auto) 29.3, [place] % (Auto) 20.7 H, Eos % (Auto) 14.7 H, Baso % (Auto) 3.0, Gran # 1.19 L, Lymph # (Auto) 1.1 L, [place] # (Auto) 0.8 H, Eos # (Auto) 0.5, Baso # ( Auto) 0.11, Neutrophils % (Manual) 43 L, Lymphocytes % (Manual) 32, Monocytes % (Manual) 13 H, Eosinophils % (Manual) 12 H, Platelet Evaluation Normal 12/16/17 21:35: Urine Color Yellow, Urine Appearance Clear, Urine pH 6.0, Ur Specific [place] 1.020, Urine Protein Trace H, Urine Glucose (UA) Negative, Urine Ketones Negative, Urine Blood Negative, Urine Nitrate Negative, Urine Bilirubin Negative, Urine Urobilinogen 0.2, Ur Leukocyte Esterase Negative, Urine RBC 1 - 3, Urine WBC 2 - 5, Ur Epithelial Cells 3 - 4, Urine Bacteria Few - RAD Interpretation Narrative RAD Interpretations (Text): 12/16/17 23:07 CXR unremarkable for acute and active disease Radiology Orders: 12/16/17 21:28 CXR [CHEST PORTABLE] [RAD] Stat - EKG Interpretation Interpreted by ED Physician: Yes (NSR with a Vent rate of 68, no ST or T-wave abnormalities) - Medication Orders Current Medication Orders: Discontinued Medications Dexamethasone (Decadron Inj) 10 mg IM STAT STA Stop: 12/16/17 21:27 Last Admin: 12/16/17 21:44 Dose: 10 mg IM Administration Charges Document 12/16/17 21:44 LA (Rec: 12/16/17 21:45 LA [id number]) Injection Site MAR Injection Site Left Arm Charges for Administration # of IM Administrations 1 Disposition/Present on Arrival - Present on Arrival Any Indicators Present on Arrival: Yes History of DVT/PE: No History of Uncontrolled Diabetes: No Urinary Catheter: No History of Decub. Ulcer: No History Surgical Site Infection Following: None - Disposition Have Diagnosis and Disposition been Completed?: Yes Diagnosis: Rash due to allergy Disposition: HOME/ ROUTINE Disposition Time: 23:36 Patient Plan: Discharge Condition: GOOD Discharge Instructions (ExitCare): Skin Rash (DC) Additional Instructions: CARTER XIE, thank you for letting us take care of you today. Your provider was Leonel Babin DO and you were treated for ALLERGIC REACTION. The emergency medical care you received today was directed at your acute symptoms. If you were prescribed any medication, please fill it and take as directed. It may take several days for your symptoms to resolve. Return to the Emergency Department if your symptoms worsen, do not improve, or if you have any other problems. PLEASE SEE YOUR PRIMARY CARE DOCTOR IN 2 DAYS FOR FOLLOW UP TAKE THE PEPCID TABLET WITH BENADRYL IF YOUR RASH CONTINUES Please contact your doctor or call one of the physicians/clinics you have been referred to that are listed on the Patient Visit Information form that is included in your discharge packet. Bring any paperwork you were given at discharge with you along with any medications you are taking to your follow up visit. Our treatment cannot replace ongoing medical care by a primary care provider outside of the emergency department. Thank you for allowing the [facility] team to be part of your care today. Prescriptions: DiphenhydrAMINE [Benadryl] 25 mg PO Q6 5 Days #20 cap Famotidine [Pepcid] 20 mg PO Q8 5 Days #15 tab Referrals: Dinah Sr CNM [Primary Care Provider] - Follow up with primary Forms: [employer] (Armenian)
[2017-12-16 21:54] LABS: URINE BILIRUBIN NEGATIVE (NEGATIVE); URINE BLOOD NEGATIVE (NEGATIVE); URINE GLUCOSE (UA) NEGATIVE (NEGATIVE); URINE LEUKOCYTE ESTERASE NEGATIVE Leu/uL (NEGATIVE); URINE PROTEIN TRACE mg/dL (<30 mg/dL); URINE UROBILINOGEN 0.2 E.U./dL (<1 E.U./dL)
[2017-12-16 21:55] LABS: URINE APPEARANCE CLEAR (CLEAR); URINE COLOR YELLOW (YELLOW)
[2017-12-16 22:19] LABS: URINE BACTERIA FEW (NEG)
[2017-12-16 22:31] LABS: BASO # 0.11 K/mm3 (0.0-2.0); EOS # 0.5 (0.0-0.7); EOS % 14.7 % (1.5-5.0); GRAN # 1.19 (1.4-6.5); GRAN % 32.3 % (50.0-68.0); HEMOGLOBIN 11.4 g/dL (12.0-16.0); LYMPH # 1.1 (1.2-3.4); LYMPH % 29.3 % (22.0-35.0); MEAN CELL VOLUME 94.4 fl (80.0-105.0); MEAN CORPUSCULAR HEMOGLOBIN 31.8 pg (25.0-35.0); MEAN CORPUSCULAR HGB CONC 33.6 g/dl (31.0-37.0); MEAN PLATELET VOLUME 9.7 fl (7.0-11.0); MONO # 0.8 (0.1-0.6); MONO % 20.7 % (1.0-6.0); PLATELET COUNT 288 10^3/uL (120.0-450.0); RBC 3.59 10^6/uL (3.5-6.1); RED CELL DISTRIBUTION WIDTH 14.6 % (11.5-14.5); WHITE BLOOD COUNT 3.7 10^3/ul (4.5-11.0)
[2017-12-16 22:49] LABS: ALB/GLOB RATIO 1.2 (1.1-1.8); ALBUMIN 4.6 g/dL (3.0-4.8); ALT/SGPT 26 U/L (7-56); AST/SGOT 51 U/L (14-36); BLOOD UREA NITROGEN 10 mg/dL (7-21); CALCIUM 9.4 mg/dL (8.4-10.5); GFR AFRICAN-AMERICAN > 60; GFR NON-AFRICAN AMERICAN > 60
[2017-12-16 23:13] VITALS: RESP 18; TEMP 97.7; O2SAT 99
[2017-12-16 23:19] LABS: EOSINOPHIL 12 % (0.0-3.0); LYMPHOCYTE 32 % (22.0-35.0); MONOCYTE 13 % (1.0-6.0); NEUTROPHIL 43 % (50.0-70.0)
[2017-12-16 23:20] LABS: PLATELET ESTIMATE NORMAL (NORMAL)
[2017-12-16 23:58] VITALS: BP 110/71; PULSE 70
--- NOTE | 2017-12-17 09:00 | RAD ---
Date of service: 12/16/2017 HISTORY: syncopal event COMPARISON: No prior. FINDINGS: LUNGS: No active pulmonary disease. PLEURA: No significant pleural effusion identified, no pneumothorax apparent. CARDIOVASCULAR: Normal. OSSEOUS STRUCTURES: No significant abnormalities. VISUALIZED UPPER ABDOMEN: Normal. OTHER FINDINGS: None. IMPRESSION: No active disease.
--- NOTE | 2017-12-17 17:04 | CARD ---
APPROVED REPORT Date of service: 12/16/2017 EKG Measurement Heart [id number] [place] 132P [id number] <Conclusion> Ectopic atrial rhythm, otherwise Normal ECG
== END 2017-12-16 23:53 | disposition home or self-care (01) ==
LOC: ED 21:00
DX: R21 Rash and other nonspecific skin eruption (principal)
CPT/HCPCS: 71045; 80053; 81001; 85025; 93005; 96372; 99283; J1100

== ENCOUNTER 2017-12-19 08:20 | Emergency (ER) | payer OTHER ==
[2017-12-19 08:21] VITALS: BMI 19.9
[2017-12-19 08:45] VITALS: BP 146/108; TEMP 98.2
--- NOTE | 2017-12-19 08:47 | ED PDOC ---
Arrival/HPI - General Chief Complaint: Abnormal Skin Integrity Time Seen by Provider: 12/19/17 08:46 Historian: Patient - History of Present Illness Narrative History of Present Illness (Text): 12/19/17 08:47 32 year old female, with no significant past medical history, who presents to the Emergency department complaining of an itchy, red rash on her bilateral legs and arms. Patient notes her lips feel swollen. Patient notes she came to the Emergency department 3 days ago for the same rash, which got better and then worsened. Patient denies any fevers, chills, chest pain, shortness of breath, abdominal pain, nausea, vomiting, diarrhea, back pain, neck pain, headache, dizziness, or any other complaint. Time/Duration: 24 hours Symptom Onset: Sudden Symptom Course: Unchanged Activities at Onset: Light Context: Home Past Medical History - Provider Review Nursing Documentation Reviewed: Yes - Past History Past History: No Previous - Infectious Disease Hx of Infectious Diseases: None - Tetanus Immunization Tetanus Immunization: Unknown - Reproductive Menopause: No - Genitourinary/Gynecological Hx Urinary Tract Infection: Yes - Psychiatric Hx Substance Use: No - Anesthesia Hx Anesthesia: No Family/Social History - Physician Review Nursing Documentation Reviewed: Yes Family/Social History: Unknown Family HX Smoking Status: Never Smoked Hx Alcohol Use: Yes Hx Substance Use: No Hx Substance Use Treatment: No Allergies/Home Meds Allergies/Adverse Reactions: Allergies No Known Allergies Allergy (Verified 12/19/17 08:35) Review of Systems - Physician Review All systems were reviewed & negative as marked: Yes - Review of Systems Constitutional: Normal Eyes: Normal ENT: Normal Respiratory: Normal. absent: SOB, Cough Cardiovascular: Normal. absent: Chest Pain Gastrointestinal: Normal. absent: Abdominal Pain, Diarrhea, Nausea, Vomiting Genitourinary Female: Normal. absent: Dysuria, Frequency Musculoskeletal: Normal. absent: Back Pain, Neck Pain Skin: Rash Neurological: Normal. absent: Headache, Dizziness Endocrine: Normal Hemo/Lymphatic: Normal Psychiatric: Normal Physical Exam - Physical Exam Narrative Physical Exam (Text): 12/19/17 08:51 Gen: VS reviewed, alert, well developed, well nourished, nontoxic, mild distress. ENT: normal pharynx. Eye: EOMI, PERRL. Neck: no JVD, supple, no adenopathy. CV: regular rate, regular rhythm, no rubs, no murmur, no gallops, S1, S2, pulses equal and strong. Pulm: no distress, clear to auscultation, no wheeze, no rhonchi, breath sounds equal, no rales. Abd: soft, nontender, no guarding, no rebound, no rigidity, normal bowel sounds. Ext: no edema. Skin: Diffuse red, itchy, flat rash on dorsal side of hands, bilateral upper arms, and bilateral legs. No involvement of palms or soles. No other system involvement. Psych: responds appropriately to questions, normal affect. Neuro: oriented x 3, CN2-12 intact grossly, motor intact, sensation intact. Vital Signs Reviewed: Yes Vital Signs Temp Pulse Resp BP Pulse Ox 12/19/17 09:01 98.2 F 77 19 99 12/19/17 08:44 98.2 F 78 20 146/108 H 100 12/19/17 08:30 98.6 F 80 16 105/71 98 Temperature: Afebrile Blood Pressure: Normal Pulse: Regular Respiratory Rate: Normal Appearance: Positive for: Well-Appearing, Non-Toxic, Comfortable Pain Distress: None Mental Status: Positive for: Alert and Oriented X 3 Medical Decision Making ED Course and Treatment: 12/19/17 08:53 Impression: 32 year old female presents to the Emergency department complaining of a red, itchy rash. Plan: -- Prednisone -- POC Urine Test -- Reassess and disposition Progress Notes: 12/19/17 09:01 paitent seen for diffuse and recurrent itchy red rash consistent with contact dermatitis. no apparent abnormal exposures, benign presentation without other systemic involvement. patient reports swelling of the lower lip however there is no distortion of the lip contour or anatomy. there is no pharyngeal involvement and no other systemic involvement. stable for dc. - Medication Orders Current Medication Orders: Discontinued Medications Prednisone (Prednisone Tab) 60 mg PO STAT ONE Stop: 12/19/17 08:48 Last Admin: 12/19/17 08:55 Dose: 60 mg - Scribe Statement The provider has reviewed the documentation as recorded by the Abril Brink All medical record entries made by the Dalilaibbuck were at my direction and personally dictated by me. I have reviewed the chart and agree that the record accurately reflects my personal performance of the history, physical exam, medical decision making, and the department course for this patient. I have also personally directed, reviewed, and agree with the discharge instructions and disposition. Disposition/Present on Arrival - Present on Arrival Any Indicators Present on Arrival: No History of DVT/PE: No History of Uncontrolled Diabetes: No Urinary Catheter: No History of Decub. Ulcer: No History Surgical Site Infection Following: None - Disposition Have Diagnosis and Disposition been Completed?: Yes Diagnosis: Allergic reaction Disposition: HOME/ ROUTINE Disposition Time: 09:03 Patient Plan: Discharge Condition: STABLE Discharge Instructions (ExitCare): Vivienne CHARLTON), Allergy Skin Testing Print Language: CZECH Additional Instructions: return for any new or worsening symptoms. follow up with your primary care doctor. you may need formal testing for allergens if this skin allergic reactoin happens again. your blood pressure was high than 120/80, follow up with your primary care doctor to have your blood pressure rechecked. Prescriptions: Prednisone [Deltasone] 20 mg PO DAILY 12 Days #24 tablet Referrals: Dinah Sr CNM [Primary Care Provider] - Follow up with primary Forms: [employer] [facility] [employer] [facility] (Spanish), WORK NOTE
[2017-12-19 09:02] VITALS: PULSE 77; RESP 19; O2SAT 99
== END 2017-12-19 09:02 | disposition home or self-care (01) ==
LOC: ED 08:20
DX: T78.49XA Other allergy, initial encounter (principal); X58.XXXA Exposure to other specified factors, initial encounter